=== PATIENT | male | born 1985 | race Caucasian/White ===

== ENCOUNTER 2016-10-10 19:31 | Emergency (ER) | payer MEDICAID ==
[~2016-10-10] VITALS: Ht 182.9 cm; Wt 100.8 kg
[2016-10-10 19:36] VITALS: BP 137/90
[2016-10-10] MEDS ORDERED: LIDOCAINE 1%, 20ML ONE (19:59)
[2016-10-10] MEDS ORDERED: LIDOCAINE 1%, 20ML SQ ONE (20:00)
== END 2016-10-10 21:04 | disposition home or self-care (01) ==
LOC: ED 21:00
DX: S61.511A Laceration without foreign body of right wrist, initial encounter (principal); X58.XXXA Exposure to other specified factors, initial encounter; Y93.89 Activity, other specified; Y99.8 Other external cause status; Y92.89 Other specified places as the place of occurrence of the external cause
CPT/HCPCS: 12001

== ENCOUNTER 2017-02-27 21:12 | Emergency (ER) | payer MEDICAID ==
[~2017-02-27] VITALS: Ht 182.9 cm; Wt 99.0 kg
[2017-02-27 21:16] VITALS: BP 135/90
[2017-02-27] MEDS ORDERED: LIDOCAINE 1%, 20ML ONE (21:48)
[2017-02-27] MEDS ORDERED: LIDOCAINE 1%, 10ML INFIL ONE (22:00)
== END 2017-02-27 22:46 | disposition home or self-care (01) ==
LOC: ED 22:40
DX: S61.217A Laceration without foreign body of left little finger without damage to nail, initial encounter (principal); W26.8XXA Contact with other sharp object(s), not elsewhere classified, initial encounter; Y93.89 Activity, other specified; Y92.098 Other place in other non-institutional residence as the place of occurrence of the external cause; Y99.8 Other external cause status
CPT/HCPCS: 12001; 99283

== ENCOUNTER 2019-09-22 10:07 | Emergency (ER) | payer OTHER, MEDICAID ==
[~2019-09-22] VITALS: Ht 182.9 cm; Wt 111.3 kg
[2019-09-22] MEDS ORDERED: METHOCARBAMOL 750 MG TABLET ONE (10:26)
[2019-09-22] MEDS ORDERED: NAPROXEN 500 MG TABLET ONE (10:27)
[2019-09-22] MEDS ORDERED: METHOCARBAMOL 750 MG TABLET PO ONE (10:30)
[2019-09-22] MEDS ORDERED: NAPROXEN 500 MG TABLET PO ONE (10:30)
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
--- NOTE | 2019-09-22 10:33 | NUR ---
pt medicated per emar. pt tolerated well. pt to xray at this time.
--- NOTE | 2019-09-22 10:43 | NUR ---
pt back to room from xray at this time.
[2019-09-22 11:12] VITALS: BP 126/83
--- NOTE | 2019-09-22 11:13 | NUR ---
Patient given discharge instructions and they have confirmed that they understand the instructions. Patient ambulatory with steady gait.
== END 2019-09-22 11:14 | disposition home or self-care (01) ==
LOC: ED 10:54
DX: R07.89 Other chest pain (principal); F17.200 Nicotine dependence, unspecified, uncomplicated
CPT/HCPCS: 99283